=== PATIENT | male | born 1955 | race Caucasian/White ===

== ENCOUNTER 2019-05-28 11:47 | Observation (INO) | payer BC ==
[~2019-05-28] VITALS: Ht 180.3 cm; Wt 82.0 kg
[~2019-05-28 11:47] MED LIST: CYAN500T63 PO; DILT-88 PO; DOCUMENT DATE & TIME OF BETA-BLOCKER PO ONE; FERR236T3 PO; FOLI0.8C PO; FURO-150 PO; NADO20TA PO; OMEG1CAP45 PO; OXYC-150 PO; PANT-47 PO; POTA20TA19 PO; PRAV40TA PO; ZOLP12.52 PO; ceFAZolin 2gm in dextrose, iso 100 ML IV ONE; famotidine 20mg tablet PO ONE; nitroPRUSSIDE in NS 100 ML IV PRN; phenylephrine inj 50 MG in normal saline 250ml IV soln 250 ML IV PRN; ringers solution, lacted 1,000 ML IV SCH
[2019-05-28 12:00] VITALS: BP 144/77
[2019-05-28 12:51] LABS: BASOPHILS # (AUTO) 0.1 X10'3 (0-0.2); BASOPHILS % (AUTO) 1.3 % (0-1); EOSINOPHILS # (AUTO) 0.3 X10'3 (0-0.9); EOSINOPHILS % (AUTO) 3.6 % (0-6); LYMPHOCYTES # (AUTO) 2.4 X10'3 (1.1-4.8); LYMPHOCYTES % (AUTO) 30.1 % (21-51); MEAN CORPUSCULAR HEMOGLOBIN 30.3 PG (27.0-31.0); MEAN CORPUSCULAR HGB CONC 33.2 g/dL (33.0-36.5); MEAN CORPUSCULAR VOLUME 91.3 FL (78-98); MEAN PLATELET VOLUME 8.4 FL (7.4-10.4); MONOCYTES # (AUTO) 0.8 X10'3 (0-0.9); MONOCYTES % (AUTO) 9.9 % (2-12); NEUTROPHILS # (AUTO) 4.4 X10'3 (1.8-7.7); NEUTROPHILS % (AUTO) 55.1 % (42-75); PRE OP HEMATOCRIT 35.9 % (42.0-52.0); PRE OP HEMOGLOBIN 11.9 g/dL (14.0-17.9); PRE OP PLATELET COUNT 342 X10'3 (140-440); RED BLOOD COUNT 3.93 X10'6 (4.70-6.10); RED CELL DISTRIBUTION WIDTH 15.2 % (11.5-14.5)
[2019-05-28 13:05] LABS: PRE OP PROTIME 10.5 SECONDS (9.0-12.0)
[2019-05-28 13:08] LABS: ALBUMIN 3.7 G/DL (3.4-5.0); ALBUMIN/GLOBULIN RATIO 0.8 (1.1-1.5); ALKALINE PHOSPHATASE 127 IU/L (46-116); BLOOD UREA NITROGEN 13 MG/DL (7-18); BUN/CREATININE RATIO 11.5 (5.4-32.0); CALCIUM 9.4 MG/DL (8.5-10.1); CHLORIDE 107 MMOL/L (99-107); CREATININE 1.13 MG/DL (0.60-1.10); PRE OP ALT 14 U/L (30-65); PRE OP ANION GAP 14 (8-16); PRE OP AST 16 U/L (10-37); PRE OP BILIRUB, TOTAL 0.6 MG/DL (0.0-1.0); PRE OP GLUCOSE 98 MG/DL (70-104); PRE OP POTASSIUM 4.6 MMOL/L (3.4-5.1); PRE OP SODIUM 141 MMOL/L (135-145); TOTAL CARBON DIOXIDE 20.1 MMOL/L (24-32); TOTAL PROTEIN 8.5 G/DL (6.4-8.2); eGFR 66 ML/MIN
[2019-05-28] MEDS ORDERED: iohexol 350MG/ML 100ml bottle IV ONE ×2 (13:54→14:02)
[2019-05-28] MEDS ORDERED: iohexol 300mg/ml 100ml inj. ONE (14:04)
[2019-05-28] MEDS ORDERED: iohexol 300 MG/1 ML 50ml polymer ONE (14:04)
[2019-05-28] MEDS ORDERED: ceFAZolin 1000mg inj ONE (14:08)
[2019-05-28] MEDS ORDERED: LIDOcaine 1% (10mg/ml) 2ml vial ONE (14:08)
[2019-05-28] MEDS ORDERED: heparin 10,000 units/1 ML INJ ONE (14:08)
[2019-05-28] MEDS ORDERED: fentaNYL /PF 50mcg/ml 5ml ampule ONE (14:24)
[2019-05-28] MEDS ORDERED: midazolam 2 mg/2 ml injection ONE (14:24)
[2019-05-28] MEDS ORDERED: potassium Cl 20 mEq SR tablet PO PRN ×2 (15:15)
[2019-05-28] MEDS ORDERED: diphenhydrAMINE 25mg capsule PO PRN (15:15)
[2019-05-28] MEDS ORDERED: magnesium 4gm in 100ml NS 100 ML IV PRN (15:15)
[2019-05-28] MEDS ORDERED: acetaminophen 325mg tablet PO PRN ×2 (15:15)
[2019-05-28] MEDS ORDERED: magnesium 2GM in 50ml NS 50 ML IV PRN (15:15)
[2019-05-28] MEDS ORDERED: magnesium hydroxide 30ml (MOM) UD suspension PO PRN (15:15)
[2019-05-28] MEDS ORDERED: bisacodyl 10mg suppository rectal RC PRN (15:15)
[2019-05-28] MEDS ORDERED: mag hydrox/Alum hydrox/simeth 30ml oral suspension PO PRN (15:15)
[2019-05-28] MEDS ORDERED: ondansetron/PF 4mg/2ml inj IV PRN (15:15)
[2019-05-28] MEDS ORDERED: acetaminophen 650mg rectal suppository RC PRN (15:15)
[2019-05-28] MEDS ORDERED: potassium CL 10mEq/100ml bag 100 ML IV PRN ×2 (15:15)
[2019-05-28] MEDS ORDERED: magnesium Cl slow-release 64mg tablet PO PRN (15:15)
[2019-05-28] MEDS ORDERED: furosemide 20MG tablet PO PRN (15:40)
[2019-05-28 16:08] LABS: HEMOGLOBIN A1C 5.5 % (4.5-6.2)
--- NOTE | 2019-05-28 16:15 | NUR ---
(1500) DR MELTON CANCELED SX R/T CTA RESULTS. DR WOODARD TO ADMIT PT. DR MELTON SPOKE WITH PT AND INFORMED OF SITUATION. (1530) PT WATCHING TV, NO COMPLAINTS AT THIS TIME. AWAITING BED ASSIGNMENT. CABANA ATTENDANT HERE TO PREFORM ECHOCARDIOGRAM. (1615) REPORT GIVEN TO MARY ANNE HARRIS. ALL QUESTIONS ANSWERED AND HX GIVEN. IV LEFT HAND PATENT WITH LR AT TKO. PT TRANSPORTED VIA GURNEY WITH ALL PERSONAL BELONGINGS (BLACK BAG/PHONE/CLOTHES/C[facility]. MARY ANNE HARRIS PRESENT TO RECEIVE PT. PT AMB TO BR WITH CANE UPON ARRIVAL.
[2019-05-28 16:36] VITALS: BP 146/65
[2019-05-28] MEDS: normal saline 1000ml 1,000 ML IV SCH (17:18)
[2019-05-28] MEDS ORDERED: FLU VACC QS 2019-20 (6 MOS UP) 60 MCG/0.5 ML VIAL IMVAC ONE (17:20)
[2019-05-28 18:00] VITALS: BP_SYST 120; BP_SYST 135; BP_SYST 136; BP_DIAS 64; BP_DIAS 65; BP_DIAS 73
--- NOTE | 2019-05-28 18:19 | NUR ---
Problems reprioritized. Patient report given, questions answered & plan of care reviewed with KIMBERLY Maurice.
--- NOTE | 2019-05-28 18:40 | NUR ---
Patient in room [facility]. I have received report from Wilmar HARRIS and had the opportunity to ask questions and assume patient care.
[2019-05-28] MEDS ORDERED: omega-3 acid ethyl esters 1GM capsule PO SCH (20:00)
[2019-05-28] MEDS: K and/or MAG REPLACEMENT MC SCH (20:00)
[2019-05-28] MEDS: oxyCODONE/APAP 10/325mg tablet PO PRN (20:00)
[2019-05-28] MEDS: metoprolol tartrate 50mg tablet PO SCH (20:51)
[2019-05-28] MEDS: heparin, porcine 5000 units/ml vial SQ SCH (20:57)
[2019-05-28] MEDS ORDERED: zolpidem 5mg tablet PO PRN (21:00)
[2019-05-29] VITALS: BP 111/53
--- NOTE | 2019-05-29 00:11 | NUR ---
Tele reported patient's HR running at 45. Patient asymptomatic, denies dizziness, discomfort, or respiratory distress. Patient states "I'm fine". Will continue to monitor.
[2019-05-29] MEDS: OMEGA-3/DHA/EPA/FISH OIL 1 EACH CAPSULE.DR PO SCH ×3 (01:49→13:50)
[2019-05-29] MEDS: normal saline 1000ml 1,000 ML IV SCH ×2 (01:52→11:12)
[2019-05-29] MEDS: oxyCODONE/APAP 10/325mg tablet PO PRN ×3 (04:31→15:55)
[2019-05-29 05:22] LABS: BASOPHILS # (AUTO) 0.1 X10'3 (0-0.2); BASOPHILS % (AUTO) 1.8 % (0-1); EOSINOPHILS # (AUTO) 0.3 X10'3 (0-0.9); EOSINOPHILS % (AUTO) 5.6 % (0-6); HEMATOCRIT 33.7 % (42.0-52.0); HEMOGLOBIN 11.4 g/dl (14.0-17.9); LYMPHOCYTES # (AUTO) 2.2 X10'3 (1.1-4.8); LYMPHOCYTES % (AUTO) 38.2 % (21-51); MEAN CORPUSCULAR HEMOGLOBIN 30.7 PG (27.0-31.0); MEAN CORPUSCULAR HGB CONC 33.9 g/dL (33.0-36.5); MEAN CORPUSCULAR VOLUME 90.7 FL (78-98); MEAN PLATELET VOLUME 8.6 FL (7.4-10.4); MONOCYTES # (AUTO) 0.7 X10'3 (0-0.9); MONOCYTES % (AUTO) 11.7 % (2-12); NEUTROPHILS # (AUTO) 2.4 X10'3 (1.8-7.7); NEUTROPHILS % (AUTO) 42.7 % (42-75); PLATELET COUNT 308 X10'3 (140-440); RED BLOOD COUNT 3.72 X10'6 (4.70-6.10); RED CELL DISTRIBUTION WIDTH 15.5 % (11.5-14.5); WHITE BLOOD COUNT 5.7 X10'3 (4.5-11.0)
[2019-05-29 05:41] LABS: ALANINE AMINOTRANSFERASE 12 U/L (12-78); ALBUMIN 3.2 G/DL (3.4-5.0); ALBUMIN/GLOBULIN RATIO 0.7 (1.1-1.5); ALKALINE PHOSPHATASE 116 IU/L (46-116); ANION GAP 11 (8-16); ASPARTATE AMINO TRANSFERASE 15 U/L (10-37); BILIRUBIN,TOTAL 0.5 MG/DL (0.1-1.0); BLOOD UREA NITROGEN 14 MG/DL (7-18); BUN/CREATININE RATIO 12.5 (5.4-32.0); CALCIUM 8.8 MG/DL (8.5-10.1); CHLORIDE 109 MMOL/L (99-107); CHOL/HDL RATIO 3.1 (0.00-4.99); CHOLESTEROL 115 MG/DL (0-200); CREATININE 1.12 MG/DL (0.60-1.10); GLUCOSE 91 MG/DL (70-104); HDL CHOLESTEROL 37 MG/DL (35-60); LDL CHOLESTEROL 61 MG/DL (50-100); MAGNESIUM 1.6 MG/DL (1.5-2.4); POTASSIUM 4.2 MMOL/L (3.5-5.1); SODIUM 141 MMOL/L (135-145); TOTAL PROTEIN 7.7 G/DL (6.4-8.2); TRIGLYCERIDES 112 MG/DL (20-135); eGFR 66 ML/MIN
[2019-05-29 06:30] VITALS: BP 121/71
--- NOTE | 2019-05-29 06:40 | NUR ---
Patient in room [facility]. I have received report from KIMBERLY Aparicio and had the opportunity to ask questions and assume patient care.
--- NOTE | 2019-05-29 06:46 | NUR ---
Problems reprioritized. Patient report given, questions answered & plan of care reviewed with Loretta RN.
[2019-05-29] MEDS: K and/or MAG REPLACEMENT MC SCH (07:12)
[2019-05-29] MEDS ORDERED: cyanocobalamin 500mcg tablet PO SCH (08:00)
[2019-05-29] MEDS ORDERED: ferrous gluconate 324mg tablet PO SCH (08:00)
[2019-05-29] MEDS ORDERED: pravastatin 40mg tablet PO SCH (08:00)
[2019-05-29] MEDS ORDERED: folic acid 0.4mg tablet PO SCH (08:00)
[2019-05-29] MEDS ORDERED: pantoprazole 40mg Tablet.DR PO SCH (08:00)
[2019-05-29] MEDS ORDERED: diltiazem CD 120mg capsule (once-daily) PO SCH (08:00)
[2019-05-29] MEDS: metoprolol tartrate 50mg tablet PO SCH (09:51)
[2019-05-29] MEDS: heparin, porcine 5000 units/ml vial SQ SCH (09:52)
[2019-05-29 11:00] VITALS: BP_SYST 103; BP_SYST 115; BP_SYST 97; BP_DIAS 52; BP_DIAS 65; BP_DIAS 66
[2019-05-29] MEDS ORDERED: MECL-183 PO (14:05)
--- NOTE | 2019-05-29 16:00 | NUR ---
DC inst provided to pt. IV DC'd, tip intact. All belongings sent w/pt. WC to front lobby.
== END 2019-05-29 16:00 | disposition home or self-care (01) ==
LOC: PRE-OP 11:47 → SUR 3N 15:12 → UNDOADMOB 15:18 → SUR 3N 15:18
PROVIDERS: ADMIT Family Medicine; ATTEND Family Medicine
DX: I65.23 Occlusion and stenosis of bilateral carotid arteries (principal); H81.13 Benign paroxysmal vertigo, bilateral; Z53.8 Procedure and treatment not carried out for other reasons; I67.1 Cerebral aneurysm, nonruptured; I10 Essential (primary) hypertension; K21.9 Gastro-esophageal reflux disease without esophagitis; J44.9 Chronic obstructive pulmonary disease, unspecified; G89.4 Chronic pain syndrome; F41.8 Other specified anxiety disorders; M54.9 Dorsalgia, unspecified; Z87.891 Personal history of nicotine dependence; R55 Syncope and collapse; Z23 Encounter for immunization
CPT/HCPCS: 36415; 70492; 70544; 70551; 71045; 80053; 80061; 83036; 83735; 85025; 85610; 85730; 86885; 86900; 86901; 87081; 93306; 97116; 97161; 97530; G0008; G0378; J0690; J1644; J2001; J2250; J2370; J3010; J7030; J7050; Q2037; Q9967; J7120